=== PATIENT | male | born 1950 | race Two or more races ===

== ENCOUNTER 2017-07-14 11:05 | Outpatient (CLI) | payer OTHER | END 2017-07-14 17:18 | disposition home or self-care (01) | LOC: TOM 11:05 | DX: R10.30 Lower abdominal pain, unspecified (principal); R14.3 Flatulence; Z86.010 Personal history of colon polyps; K57.30 Diverticulosis of large intestine without perforation or abscess without bleeding ==

== ENCOUNTER 2017-07-14 11:13 | Outpatient (CLI) | payer OTHER | END 2017-07-14 17:04 | disposition home or self-care (01) | LOC: RAD 11:13 | DX: M54.5 Low back pain (principal) ==

== ENCOUNTER 2017-09-26 12:14 | Outpatient (CLI) | payer OTHER | END 2017-09-26 12:24 | disposition home or self-care (01) | LOC: SONOGRAMA 12:14 → RAD 12:14 | DX: J44.1 Chronic obstructive pulmonary disease with (acute) exacerbation (principal); N28.1 Cyst of kidney, acquired ==

== ENCOUNTER 2018-02-26 10:50 | Outpatient (CLI) | payer OTHER | END 2018-02-26 11:20 | disposition home or self-care (01) | LOC: TOM 10:50 | DX: R10.84 Generalized abdominal pain (principal); F52.8 Other sexual dysfunction not due to a substance or known physiological condition; I86.1 Scrotal varices ==

== ENCOUNTER 2018-03-21 12:18 | Outpatient (CLI) | payer OTHER | END 2018-03-21 15:00 | disposition home or self-care (01) | LOC: LAB 12:18 | DX: E55.9 Vitamin D deficiency, unspecified (principal); M85.9 Disorder of bone density and structure, unspecified; M81.8 Other osteoporosis without current pathological fracture; E21.2 Other hyperparathyroidism; E56.1 Deficiency of vitamin K; E88.89 Other specified metabolic disorders; E83.42 Hypomagnesemia ==

== ENCOUNTER 2018-04-06 13:45 | Outpatient (CLI) | payer OTHER | END 2018-04-06 14:22 | disposition home or self-care (01) | LOC: NUCLEAR 13:45 | DX: M81.0 Age-related osteoporosis without current pathological fracture (principal) ==

== ENCOUNTER 2018-04-18 12:34 | Outpatient (CLI) | payer OTHER | END 2018-04-18 14:07 | disposition home or self-care (01) | LOC: RAD 12:34 | DX: M87.051 Idiopathic aseptic necrosis of right femur (principal); M87.052 Idiopathic aseptic necrosis of left femur ==

== ENCOUNTER 2018-04-25 10:56 | Outpatient (CLI) | payer OTHER | END 2018-04-25 16:23 | disposition home or self-care (01) | LOC: TOM 10:56 | DX: M87.051 Idiopathic aseptic necrosis of right femur (principal) ==

== ENCOUNTER 2018-08-21 12:47 | Outpatient (CLI) | payer OTHER | END 2018-08-21 14:34 | disposition home or self-care (01) | LOC: RAD 12:47 | DX: Z76.89 Persons encountering health services in other specified circumstances (principal) ==

== ENCOUNTER 2018-08-24 12:48 | Outpatient (CLI) | payer OTHER | END 2018-08-24 12:59 | disposition home or self-care (01) | LOC: LAB 12:48 | DX: D64.89 Other specified anemias (principal); E88.89 Other specified metabolic disorders; D68.8 Other specified coagulation defects; N39.0 Urinary tract infection, site not specified; Z22.322 Carrier or suspected carrier of Methicillin resistant Staphylococcus aureus ==

== ENCOUNTER 2018-08-30 11:59 | Outpatient (CLI) | payer OTHER | END 2018-08-30 12:06 | disposition home or self-care (01) | LOC: LAB 11:59 | DX: E83.42 Hypomagnesemia (principal); E13.69 Other specified diabetes mellitus with other specified complication ==

== ENCOUNTER 2018-09-10 10:52 | Outpatient (CLI) | payer OTHER | END 2018-09-10 11:29 | disposition home or self-care (01) | LOC: LAB 10:52 | DX: E11.42 Type 2 diabetes mellitus with diabetic polyneuropathy (principal); I10 Essential (primary) hypertension ==

== ENCOUNTER 2018-09-14 10:52 | Outpatient (CLI) | payer OTHER ==
[2018-09-17] MEDS ORDERED: CREON DR 36,001 EACH PO (14:34)
[2018-09-17] MEDS ORDERED: METFORMIN HCL500 M2 PO (14:35)
[2018-09-17] MEDS ORDERED: GLIMEPIRIDE1 MG PO (14:35)
[2018-09-17] MEDS ORDERED: [UNRECOGNIZED DRUG - OTHER] TP (14:36)
[2018-09-17] MEDS ORDERED: CLONAZEPAM1 MG PO (14:36)
== END 2018-09-14 11:02 | disposition home or self-care (01) ==
LOC: RAD 501 10:52
DX: M87.051 Idiopathic aseptic necrosis of right femur (principal); M79.671 Pain in right foot

== ENCOUNTER → 2018-09-14 | Outpatient (CLI) | payer OTHER ==
[~2018-09-14] MED LIST: CLONAZEPAM1 MG PO; CREON DR 36,001 EACH PO; GLIMEPIRIDE1 MG PO; METFORMIN HCL500 M2 PO; [UNRECOGNIZED DRUG - OTHER] TP
== END | disposition home or self-care (01) ==
LOC: NUCLEAR 15:00
DX: I87.2 Venous insufficiency (chronic) (peripheral) (principal)

== ENCOUNTER → 2018-09-17 | Outpatient (CLI) | payer OTHER | END | disposition home or self-care (01) | LOC: NUCLEAR 11:00 | DX: I73.89 Other specified peripheral vascular diseases (principal); I73.9 Peripheral vascular disease, unspecified ==

== ENCOUNTER 2018-09-18 09:18 | Day surgery (SDC) | payer OTHER | END 2018-09-18 19:45 | disposition home or self-care (01) | LOC: CIR.AMB 09:18 | DX: M20.21 Hallux rigidus, right foot (principal) ==

== ENCOUNTER 2018-10-09 11:47 | Outpatient (CLI) | payer OTHER ==
[2018-10-12] MEDS ORDERED: NORVASC5 MG (16:42)
== END 2018-10-09 12:23 | disposition home or self-care (01) ==
LOC: LAB 11:47
DX: D64.89 Other specified anemias (principal); E88.89 Other specified metabolic disorders; D68.8 Other specified coagulation defects; N39.0 Urinary tract infection, site not specified; Z22.322 Carrier or suspected carrier of Methicillin resistant Staphylococcus aureus; I49.8 Other specified cardiac arrhythmias

== ENCOUNTER 2018-10-22 10:01 | Inpatient (IN) | payer OTHER ==
[~2018-10-22] VITALS: Ht 175.3 cm; Wt 70.3 kg
[~2018-10-22 10:01] MED LIST changes: +NORVASC5 MG
== END 2018-10-26 14:04 | disposition home or self-care (01) | DRG 470 ==
LOC: SURG 10-23 09:18 → O/R 10-23 09:18 → SURG 10-23 17:27 → SURH 10-24 14:55 → SURG 10-26 14:04
PROVIDERS: ADMIT Orthopaedic Surgery
PROC: 0SR902Z Replacement of Right Hip Joint with Metal on Polyethylene Synthetic Substitute, Open Approach (ICD-10-PCS; principal; 2018-10-23 09:30)
DX: M16.11 Unilateral primary osteoarthritis, right hip (principal); M87.351 Other secondary osteonecrosis, right femur; D62 Acute posthemorrhagic anemia; I10 Essential (primary) hypertension; E11.9 Type 2 diabetes mellitus without complications